=== PATIENT | female | born 1945 | race Caucasian/White ===

== ENCOUNTER → 2018-01-10 13:47 | Outpatient (CLI) | payer MEDICARE, OTHER, SELFPAY ==
--- NOTE | 2018-01-10 | DI.US.S_ITS ---
PROCEDURE: US PERIPH VENOUS LOW EXTREM RT INDICATIONS: LEG PAIN TECHNIQUE: Real-time imaging, as well as color and pulse Doppler interrogation, were performed of the lower extremity deep veins from the inguinal ligament to the popliteal fossa. COMPARISON: None. FINDINGS: The deep veins are normally compressible, and free of intraluminal thrombus. Color and pulse Doppler demonstrate normal phasic intraluminal flow. There is normal augmentation response to distal compression maneuver. IMPRESSION: No DVT in the right lower extremity. Dictated by: Amol Izquierdo M.D. on 01/10/2018 at 22:20 Transcribed by: SEUN on 01/10/2018 at 22:22 Approved by: Amol Izquierdo M.D. on 01/11/2018 at 7:41
== END ==
PROVIDERS: PCP Family Medicine; Visit Provider Family Medicine
DX: M79.604 Pain in right leg (principal)
CPT/HCPCS: 93971

== ENCOUNTER → 2021-09-29 08:55 | Outpatient (CLI) | payer MEDICARE, OTHER, SELFPAY ==
[2021-09-29 11:14] LABS: COVID19 -Nasal RAPID Negative (Negative)
== END ==
PROVIDERS: PCP Internal Medicine; Referring Provider Internal Medicine Cardiovascular Disease; Visit Provider Internal Medicine
DX: Z20.822 Contact with and (suspected) exposure to COVID-19 (principal)
CPT/HCPCS: 87635; C9803

== ENCOUNTER → 2021-09-29 10:57 | Outpatient (CLI) | payer MEDICARE, OTHER, SELFPAY ==
--- NOTE | 2021-10-06 09:44 | PM.PFT.1 ---
Pulmonary Function Test Referral & Results Date Patient Seen: 09/29/21 Requesting provider: Jamaal Zaidi Results: The spirometry demonstrates an FVC of 2.15 L which is 87% of predicted. The FEV1 was measured at 1.74 L which is 95% of predicted. The FEV1/FVC ratio was 81 which is 109% of predicted. Following the administration of bronchodilator there was a 37% improvement in FEF 25-75% Lung volumes show an SVC of 2.37 L which is 94% of predicted. The diffusing capacity was measured at 18.14 which is 84% of predicted. The maximum voluntary ventilation was normal Interpretation: This study demonstrates normal spirometry There may be a minimal reduction in diffusing capacity but this could also be considered normal
== END ==
PROVIDERS: PCP Internal Medicine; Referring Provider Internal Medicine Cardiovascular Disease; Visit Provider Internal Medicine Cardiovascular Disease
DX: R06.02 Shortness of breath (principal); Z20.822 Contact with and (suspected) exposure to COVID-19
CPT/HCPCS: 87635; 94060; 94726; 94729; C9803

== ENCOUNTER → 2021-11-03 13:32 | Outpatient (CLI) | payer MEDICARE, OTHER, SELFPAY ==
--- NOTE | 2021-11-03 | DI.ECHO.S_ITS ---
[facility]---------+ [facility] +---------+ : : [address] [place] : : : : [id number] : : : : Phone: [phone]---------+ Echocardiogram Report + + :Name: YAMINI GALEANA Study Date: 11/03/2021 Height: 62 in : :[facility] ReadingLocation: Weight: 131 lb : : Gender: Female BSA: 1.6 m2 : :: 1945 Age: 76 yrs BP: 189/98 mmHg: :Reason For Study: SOB : :Ordering Physician: KAYLEE, : :KIM Performed By: Jacek Olvera : :Referring: KIM PAGE : + + Interpretation Summary 1) Normal left ventricular size, thickness, wall motion, and systolic function (EF 60-65%). 2) Normal right ventricular size and function. 3) There is mild aortic stenosis (valve area 2.0cm2, mean gradient 9mm Hg, severity ratio 0.71). 4) The right ventricular systolic pressure is estimated to be at least 37 mmHg based on an estimated right atrial pressure of 3 mm Hg. 5) Hypertension present during the study (BP 189/98mmHg). 6) No prior echo available for comparison. Procedure: A two-dimensional transthoracic echocardiogram with color flow and Doppler was performed. The study quality was technically adequate. There is no prior echocardiogram noted for this patient. Left Ventricle: The left ventricle is normal in size and wall thickness. Left ventricular systolic function is normal. The ejection fraction is estimated to be 60-65%. There are no focal wall motion abnormalities. Diastolic function could not be accurately assessed due to contradictory data. Right Ventricle: The right ventricle is normal in size and function. Atria: Both atria are normal in size. The interatrial septum grossly appears intact with no obvious evidence for an atrial septal defect. Mitral Valve: The mitral valve is normal in structure and function. There is mild mitral regurgitation. Aortic Valve: There is mild aortic valve sclerosis. There is mild aortic stenosis. No aortic regurgitation is present. Tricuspid Valve: The tricuspid valve is normal in structure and function. There is mild tricuspid regurgitation. The right ventricular systolic pressure is estimated to be at least 37 mmHg based on an estimated right atrial pressure of 3 mm Hg. Pulmonic Valve: The pulmonic valve is normal in structure and function. There is no pulmonic valvular regurgitation. Great Vessels: The aortic root is normal size. The ascending aorta could not be visualized. The IVC is of normal diameter and collapses greater than 50% with a sniff. This suggests a low right atrial pressure of 3 mm Hg. Pericardium/ Pleura There is no pericardial effusion. There is no pleural effusion. MMode/2D Measurements & Calculations LVIDd: 3.6 cm LVOT diam: 1.9 cm LVIDs: 2.4 cm Ao root diam: 2.9 cm FS: 32.4 % IVSd: 0.82 cm LVPWd: 0.92 cm LV cantrell. diameter/BSA (cm/m^2): 2.2 LV sys. diameter/BSA (cm/m^2): 1.5 LA A2 area: 15.2 cm2 RA long axis: 4.5 cm LA A4 area: 15.0 cm2 RA area: 13.9 cm2 LA length (vol): 4.6 cm RA vol: 36.9 ml LA vol: 42.1 ml RA : 23.1 ml/m2 LA vol index: 26.4 ml/m2 TAPSE: 2.5 cm Doppler Measurements & Calculations Ao V2 max: 201.3 cm/sec LVOT Max Harley: 128.7 cm/sec Ao V2 mean: 139.0 cm/sec LV V1 max P.6 mmHg Ao max P.2 mmHg LV V1 VTI: 31.8 cm Ao mean P.6 mmHg FUNMILAYO(I,D): 2.0 cm2 Ao V2 VTI: 45.0 cm FUNMILAYO(V,D): 1.8 cm2 sev ratio: 0.71 FUNMILAYO indexed to BSA (cm^2/m^2): 1.3 MV E max harley: 88.7 cm/sec TR max harley: 292.4 cm/sec MV A max harley: 113.2 cm/sec TR max P.2 mmHg MV E/A: 0.78 Med Peak E' Harley: 7.1 cm/sec E/E' med: 12.6 Lat Peak E' Harley: 6.4 cm/sec E/E' lat: 13.8 E/e' average: 13.2 MV dec time: 0.27 sec SV(LVOT): 90.5 ml Reading Physician:04:00 PM
--- NOTE | 2021-11-03 | DI.NM.S_ITS ---
PROCEDURE: NM EXERCISE TREADMILL NON NUC COMPARISON: None. INDICATIONS: Shortness of breath FINDINGS: The patient exercised 7 minutes and 10 seconds reaching 10.1 METs, FLORENCIA -27% and 113% of maximum predicted heart rate. Patient had 2/10 chest tightness at peak exercise. Mild horizontal ST depressions in the inferior and anterolateral leads. IMPRESSION: Abnormal treadmill non-nuclear stress test consistent with ischemia and angina. Dictated by: Efrain Shah MD on 11/04/2021 at 13:17 Approved by: Efrain Shah MD on 11/04/2021 at 13:19
== END ==
PROVIDERS: PCP Internal Medicine; Referring Provider Internal Medicine Cardiovascular Disease; Visit Provider Internal Medicine Cardiovascular Disease
DX: R06.02 Shortness of breath (principal); I08.3 Combined rheumatic disorders of mitral, aortic and tricuspid valves
CPT/HCPCS: 93017; 93306

== ENCOUNTER → 2022-10-20 10:44 | Outpatient (CLI) | payer MEDICARE, OTHER, SELFPAY ==
--- NOTE | 2022-10-20 | DI.ECHO.S_ITS ---
[facility]---------+ [facility] +---------+ : : [address] : [place] : : : : [phone] : : : : Phone: [phone] +---------+ Echocardiogram Report + + :Name: YAMINI GALEANA Study Date: 10/20/2022 Height: 62 in : :[facility] ReadingLocation: Weight: 130 lb : : Gender: Female BSA: 1.6 m2 : :: 1945 Age: 77 yrs BP: 168/72 mmHg: :Reason For Study: AORTIC STENOSIS HR: 68 : :Ordering Physician: MACKENZIE, : :LILLIAM Performed By: ESTEFANÍA RATLIFF : :Referring: LILLIAM MANN : + + Interpretation Summary The ejection fraction is estimated to be 60-65%. Diastolic function could not be accurately assessed due to contradictory data. The right ventricle is normal in size and function. There is mild to moderate mitral regurgitation. There is mild aortic stenosis. There is mild to moderate tricuspid regurgitation. The right ventricular systolic pressure is estimated to be at least 33 mmHg based on an estimated right atrial pressure of 3 mm Hg. Compared to the prior study dated 11/03/2021, there is a very slight increase in the gradients across the aortic valve however they are still consistent with mild stenosis. Procedure: A two-dimensional transthoracic echocardiogram with color flow and Doppler was performed. The study quality was technically adequate. Comparison is made with the echocardiogram of 11/03/2021. The patient was in normal sinus rhythm during the exam. Left Ventricle: The left ventricle is normal in size and wall thickness. Left ventricular systolic function is normal. The ejection fraction is estimated to be 60-65%. Diastolic function could not be accurately assessed due to contradictory data. Right Ventricle: The right ventricle is normal in size and function. Atria: Both atria are normal in size. There is no Doppler evidence for an interatrial shunt. Mitral Valve: The mitral valve is normal in structure and function. There is mild to moderate mitral regurgitation. Aortic Valve: The aortic valve is trileaflet. The aortic valve is moderately calcified. There is mild aortic stenosis. The peak aortic velocity is 2.2 m/sec. The aortic valve mean gradient is 11 mmHg. No aortic regurgitation is present. Tricuspid Valve: The tricuspid valve is normal in structure and function. There is mild to moderate tricuspid regurgitation. The right ventricular systolic pressure is estimated to be at least 33 mmHg based on an estimated right atrial pressure of 3 mm Hg. Pulmonic Valve: The pulmonic valve leaflets are thin and pliable; valve motion is normal. There is no pulmonic valvular regurgitation. Great Vessels: The aortic root is normal size. The ascending aorta is normal in size. The IVC is of normal diameter and collapses greater than 50% with a sniff. This suggests a low right atrial pressure of 3 mm Hg. Pericardium/ Pleura There is no pericardial effusion. There is no pleural effusion. MMode/2D Measurements & Calculations LVIDd: 3.4 cm LVOT diam: 1.8 cm LVIDs: 2.6 cm Ao root diam: 2.5 cm FS: 22.8 % asc Aorta Diam: 3.5 cm IVSd: 0.75 cm LVPWd: 0.69 cm LV cantrell. diameter/BSA (cm/m^2): 2.1 LV sys. diameter/BSA (cm/m^2): 1.7 LA A2 area: 16.3 cm2 RA long axis: 4.6 cm LA A4 area: 14.8 cm2 RA area: 15.4 cm2 LA length (vol): 4.5 cm RA vol: 44.3 ml LA vol: 45.9 ml RA : 27.8 ml/m2 LA vol index: 28.9 ml/m2 TAPSE: 1.7 cm Doppler Measurements & Calculations Ao V2 max: 222.5 cm/sec LVOT Max Harley: 119.5 cm/sec Ao V2 mean: 154.9 cm/sec LV V1 max P.7 mmHg Ao max P.8 mmHg LV V1 VTI: 28.0 cm Ao mean P.6 mmHg FUNMILAYO(I,D): 1.3 cm2 Ao V2 VTI: 51.3 cm FUNMILAYO(V,D): 1.3 cm2 sev ratio: 0.55 FUNMILAYO indexed to BSA (cm^2/m^2): 0.83 MV E max harley: 100.5 cm/sec TR max harley: 274.9 cm/sec MV A max harley: 113.1 cm/sec TR max P.2 mmHg MV E/A: 0.89 PA V2 max: 104.6 cm/sec Med Peak E' Harley: 6.5 cm/sec PA V2 mean: 79.1 cm/sec E/E' med: 15.4 PA mean P.6 mmHg Lat Peak E' Harley: 7.5 cm/sec PA pr(Accel): 15.6 mmHg E/E' lat: 13.4 E/e' average: 14.4 MV dec time: 0.20 sec [facility] 67.7 ml Reading Physician:12:52 PM
--- NOTE | 2022-10-20 | DI.NM.S_ITS ---
PROCEDURE: NM AMNA PERF SPECT R&S PHARM Rest and pharmacological stress myocardial perfusion SPECT with gated imaging and ejection fraction RADIOPHARMACEUTICAL: 12.2 mCi Tc-99m tetrafosmin IV at rest and 26.1 mCi Tc-99m tetrafosmin IV at peak effect of pharmacological stress. A [id number] was performed. INDICATIONS: Nonrheumatic aortic (valve) stenosis TECHNIQUE: Radiopharmaceutical was injected at peak stress test, and also at rest. SPECT images were obtained. SPECT myocardial perfusion images were displayed in short axis, horizontal long axis, and vertical long axis views. Gated images were reviewed using [employer] software. COMPARISON: None. CARDIAC STRESS: A pharmacologic stress test was performed under the supervision of an attending staff, using an infusion of regadenoson 0.4 mg IV. Hemodynamic data: There is normal blood pressure and heart rate response to pharmacologic stress. Symptoms: The patient denied anginal chest pain. EKG: No diagnostic changes of ischemia; no ectopy. FINDINGS: Raw data: There is good myocardial uptake of radiotracer. No significant motion artifacts. [id number]-[id number] ratio is 0.32 (normal is less than 0.38 for tetrafosmin tracer). Left ventricle function: Gated images demonstrate normal left ventricular wall thickening. No segmental wall motion abnormalities. No transient ischemic dilation; TID is 1.11 (normal less than 1.3). Left ventricle resting end diastolic volume is 50 mL. Left ventricle stress ejection fraction is >75%; normal range is above 45%. Myocardial perfusion: There is normal distribution of activity in the right and left ventricular myocardium. No fixed or reversible perfusion defects. IMPRESSION: Low risk study. No evidence of pharmacologic induced ischemia or scar. Hyperdynamic LV function. Dictated by: Darling Steve D.O. on 10/24/2022 at 16:55 Approved by: Darling Steve D.O. on 10/24/2022 at 16:57
== END ==
PROVIDERS: PCP Internal Medicine; Referring Provider Internal Medicine; Visit Provider Internal Medicine
DX: I08.3 Combined rheumatic disorders of mitral, aortic and tricuspid valves (principal); R07.89 Other chest pain
CPT/HCPCS: 78452; 93017; 93306; A9502; J2785